=== PATIENT | female | born 1995 | race Caucasian/White ===

== ENCOUNTER 2021-05-08 13:34 | Emergency (ER) | payer BC ==
[~2021-05-08] VITALS: Ht 160 cm; Wt 65.7 kg
[2021-05-08 13:53] LABS: BILIRUBIN,URINE NEGATIVE (NEGATIVE); CLARITY,URINE CLEAR; COLOR,URINE YELLOW; GLUCOSE, URINE (UA) NEGATIVE (NEGATIVE); KETONES,URINE NEGATIVE (NEGATIVE); LEUKOCYTE ESTERASE ,URINE NEGATIVE (NEGATIVE); NITRITE,URINE NEGATIVE (NEGATIVE); PROTEIN,URINE NEGATIVE (NEGATIVE)
--- NOTE | 2021-05-08 13:59 | ED Abdominal Pain ---
General Chief Complaint: Abdominal/GI Problems Stated Complaint: RLQ PAIN, N/V,DIARRHEA Source of Information: Patient Exam Limitations: No Limitations History of Present Illness Date Seen by Provider: May 08, 2021 Time Seen by Provider: 13:57 Initial Comments To ER with right lower quadrant abdominal pain nausea vomiting and diarrhea. No fevers. No dysuria. This began as a suprapubic discomfort waxing and waning about 1.5 weeks ago. She attributed it to being about to start her menstrual cycle as she only had 3 days of active pills left before switching to placebo pills on her control regimen. She had minimal bleeding but she does have some waxing and waning pain that has now moved to the right lower quadrant. She has intermittent pain currently she rates this at 6 out of 10. She has intermittent nausea that is not present currently. She is sexually active but denies any abnormal vaginal discharge. 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 Timing/Duration: 1-2 Days Severity/Quality: Moderate Location: RLQ Radiation: No Radiation Activities at Onset: None Associated Symptoms: Nausea/Vomiting Allergies and Home Medications Allergies Coded Allergies: No Known Drug Allergies (Unverified , 05/08/21) Patient Home Medication List Home Medication List Reviewed: Yes Review of Systems Review of Systems Constitutional: see HPI EENTM: No Symptoms Reported Respiratory: No Symptoms Reported Cardiovascular: No Symptoms Reported Gastrointestinal: See HPI, Abdominal Pain, Diarrhea, Nausea Genitourinary: No Symptoms Reported Musculoskeletal: no symptoms reported Skin: no symptoms reported Psychiatric/Neurological: No Symptoms Reported Endocrine: No Symptoms Reported Hematologic/Lymphatic: No Symptoms Reported Past Lbpibsa-Pjzhrw-Knwomx Hx Patient Social History Tobacco Use?: No Use of E-Cig and/or Vaping dev: No Substance use?: No Alcohol Use?: No Immunizations Up To Date First/Initial COVID19 Vaccinat: 2020 Second COVID19 Vaccination Kyle: 2020 Physical Exam Vital Signs Vital Signs - First Documented 05/08/21 13:45 Pulse 92 Resp 16 B/P (MAP) 147/100 (116) Pulse Ox 98 O2 Delivery Room Air Capillary Refill : Height/Weight/BMI Height: '" Weight: lbs. oz. kg; BMI Method: General Appearance: WD/WN, no apparent distress HEENT: PERRL/EOMI, normal ENT inspection Neck: non-tender, full range of motion Respiratory: no respiratory distress, no accessory muscle use Cardiovascular: regular rate, rhythm, no murmur Gastrointestinal: normal bowel sounds, soft, tenderness (minimal rlq) Extremities: normal range of motion, non-tender Neurologic/Psychiatric: alert, normal mood/affect, oriented x 3 Skin: normal color, warm/dry Progress/Results/Core Measures Results/Orders Lab Results Laboratory Tests Test 05/08/21 13:45 05/08/21 13:51 Range/Units Urine Color YELLOW Urine Clarity CLEAR Urine pH 6.0 5-9 Urine Specific [place] 1.020 1.016-1.022 Urine Protein NEGATIVE NEGATIVE Urine Glucose (UA) NEGATIVE NEGATIVE Urine Ketones NEGATIVE NEGATIVE Urine Nitrite NEGATIVE NEGATIVE Urine Bilirubin NEGATIVE NEGATIVE Urine Urobilinogen 0.2 < = 1.0 MG/DL Urine Leukocyte Esterase NEGATIVE NEGATIVE Urine RBC (Auto) NEGATIVE NEGATIVE Urine RBC NONE /HPF Urine WBC RARE /HPF Urine Squamous Epithelial Cells 2-5 /HPF Urine Crystals NONE /LPF Urine Bacteria TRACE /HPF Urine Casts NONE /LPF Urine Mucus NEGATIVE /LPF Urine Culture Indicated NO White Blood Count 6.8 4.3-11.0 10^3/uL Red Blood Count 4.54 3.80-5.11 10^6/uL Hemoglobin 13.4 11.5-16.0 g/dL Hematocrit 40 35-52 % Mean Corpuscular Volume 89 80-99 fL Mean Corpuscular Hemoglobin 30 25-34 pg Mean Corpuscular Hemoglobin Concent 33 32-36 g/dL Red Cell Distribution Width 12.7 10.0-14.5 % Platelet Count 325 130-400 10^3/uL Mean Platelet Volume 8.7 L 9.0-12.2 fL Immature Granulocyte % (Auto) 0 % Neutrophils (%) (Auto) 53 42-75 % Lymphocytes (%) (Auto) 42 12-44 % Monocytes (%) (Auto) 4 0-12 % Eosinophils (%) (Auto) 1 0-10 % Basophils (%) (Auto) 0 0-10 % Neutrophils # (Auto) 3.6 1.8-7.8 X 10^3 Lymphocytes # (Auto) 2.8 1.0-4.0 X 10^3 Monocytes # (Auto) 0.3 0.0-1.0 X 10^3 Eosinophils # (Auto) 0.1 0.0-0.3 10^3/uL Basophils # (Auto) 0.0 0.0-0.1 10^3/uL Immature Granulocyte # (Auto) 0.0 0.0-0.1 10^3/uL Erythrocyte Sedimentation Rate 13 0-20 MM/HR Sodium Level 138 135-145 MMOL/L Potassium Level 3.6 3.6-5.0 MMOL/L Chloride Level 104 98-107 MMOL/L Carbon Dioxide Level 22 21-32 MMOL/L Anion Gap 12 5-14 MMOL/L Blood Urea Nitrogen 13 7-18 MG/DL Creatinine 0.82 0.60-1.30 MG/DL Estimat Glomerular Filtration Rate 84 BUN/Creatinine Ratio 16 Glucose Level 101 70-105 MG/DL Calcium Level 9.9 8.5-10.1 MG/DL Corrected Calcium 9.6 8.5-10.1 MG/DL Total Bilirubin 0.2 0.1-1.0 MG/DL Aspartate Amino Transf (AST/SGOT) 20 5-34 U/L Alanine Aminotransferase (ALT/SGPT) 19 0-55 U/L Alkaline Phosphatase 54 40-136 U/L C-Reactive Protein High Sensitivity 0.25 0.00-0.50 MG/DL Total Protein 7.8 6.4-8.2 GM/DL Albumin 4.4 3.2-4.5 GM/DL Serum Test, Qualitative NEGATIVE NEGATIVE My Orders Orders - CRISTELA BRANDT APRN Cbc With Automated Diff (05/08/21 13:42) Comprehensive Metabolic Panel (05/08/21 13:42) Hs C Reactive Protein (05/08/21 13:42) Ed Iv/Invasive Line Start (05/08/21 13:42) Ua Culture If Indicated (05/08/21 13:42) Hcg,Qualitative Serum (05/08/21 13:42) Erythrocyte Sedimentation Rate (05/08/21 13:56) Ketorolac Injection (Toradol Injection) (05/08/21 14:00) Us Pelvic (Non Ob)40029 (05/08/21 13:56) Medications Given in ED Current Medications Medications Dose Ordered Sig/[place] Route Start Time Stop Time Status Last Admin Dose Admin Ketorolac Tromethamine 15 mg ONCE ONCE IVP 05/08/21 14:00 05/08/21 14:01 DC 05/08/21 14:02 15 MG Vital Signs/I&O 05/08/21 13:45 Pulse 92 Resp 16 B/P (MAP) 147/100 (116) Pulse Ox 98 O2 Delivery Room Air Departure Communication (Admissions) 0405-states that she is very anxious. She is relieved to know that her ovarian cyst is small. She would like a prescription for ibuprofen higher dose and states that she has taken Klonopin before for anxiety but I think she needs something for short-term anxiety control. She is agreeable to a few doses of Ativan as needed. She already takes Zoloft 200 mg daily. Impression Primary Impression: Ovarian cyst Disposition: HOME, SELF-CARE Condition: Stable Departure-Patient Inst. Decision time for Depature: 14:52 Referrals: NO,LOCAL PHYSICIAN (PCP/Family) Primary Care Physician Patient Instructions: Ovarian Cyst ED Add. Discharge Instructions: All discharge instructions reviewed with patient and/or family. Voiced understanding. Scripts Lorazepam (Ativan) 0.5 Mg Tablet 0.5 MG PO BID PRN for ANXIETY for 7 Days, #10 TAB Prov: CRISTELA BRANDT APRN 05/08/21 Ibuprofen (Ibuprofen) 800 Mg Tablet 800 MG PO Q8H PRN for PAIN, #30 TAB 0 Refills Prov: CRISTELA BRANDT APRN 05/08/21 CRISTELA BRANDT APRN May 08, 2021 13:59
[2021-05-08] MEDS ORDERED: KETOROLAC 30 MG/ML VIAL IVP ONE (14:00)
[2021-05-08 14:02] LABS: BACTERIA,URINE TRACE /HPF; WBC,URINE RARE /HPF
[2021-05-08 14:02] LABS: BASOPHILS % (AUTO) 0 % (0-10); EOSINOPHILS # (AUTO) 0.1 10^3/uL (0.0-0.3); EOSINOPHILS % (AUTO) 1 % (0-10); HEMATOCRIT 40 % (35-52); HEMOGLOBIN 13.4 g/dL (11.5-16.0); LYMPHOCYTES # (AUTO) 2.8 X 10^3 (1.0-4.0); LYMPHOCYTES % (AUTO) 42 % (12-44); MEAN CORPUSCULAR HEMOGLOBIN 30 pg (25-34); MEAN CORPUSCULAR HGB CONC 33 g/dL (32-36); MEAN CORPUSCULAR VOLUME 89 fL (80-99); MEAN PLATELET VOLUME 8.7 fL (9.0-12.2); MONOCYTES # (AUTO) 0.3 X 10^3 (0.0-1.0); MONOCYTES % (AUTO) 4 % (0-12); NEUTROPHILS # (AUTO) 3.6 X 10^3 (1.8-7.8); NEUTROPHILS % (AUTO) 53 % (42-75); PLATELET COUNT 325 10^3/uL (130-400); WHITE BLOOD COUNT 6.8 10^3/uL (4.3-11.0)
[2021-05-08 14:15] LABS: ALBUMIN 4.4 GM/DL (3.2-4.5); POTASSIUM 3.6 MMOL/L (3.6-5.0)
[2021-05-08 14:17] LABS: CALCIUM 9.9 MG/DL (8.5-10.1)
[2021-05-08 14:18] LABS: TOTAL PROTEIN 7.8 GM/DL (6.4-8.2)
[2021-05-08 14:20] LABS: BILIRUBIN,TOTAL 0.2 MG/DL (0.1-1.0)
[2021-05-08 14:22] LABS: CREATININE SERUM 0.82 MG/DL (0.60-1.30)
[2021-05-08] MEDS ORDERED: IBUP-1780 PO (15:21)
[2021-05-08] MEDS ORDERED: LORA-404 PO (15:21)
[2021-05-08 15:29] VITALS: BP 127/86
--- NOTE | 2021-05-08 16:23 | Diagnostic Imaging Report ---
PROCEDURE: Pelvic complete, transabdominal sonogram. Limited pelvic Doppler. TECHNIQUE: Multiple real-time grayscale images were obtained of the pelvis in various projections, transabdominally. Limited pelvic duplex images were obtained. HISTORY: Suprapubic and right lower quadrant. COMPARISON: None available. FINDINGS: The uterus is anteverted and is normal in size. It measures 7.1 x 3.2 x 5.4 cm. The endometrial stripe measures 3 mm in width. Both ovaries are normal. The right ovary measures 2.8 x 2.5 x 3.1 cm and the left ovary measures 2.6 x 1.3 cm. There is a physiologic cyst in the right ovary. Duplex images reveal normal arterial inflow to both ovaries. There is no free pelvic fluid. IMPRESSION: Normal uterus and ovaries. Dictated by: Dictated on workstation # [id number]
== END 2021-05-08 15:29 | disposition home or self-care (01) ==
LOC: ER 13:37
DX: N83.201 Unspecified ovarian cyst, right side (principal)
CPT/HCPCS: 36415; 76856; 80053; 81000; 84703; 85025; 85652; 86141

== ENCOUNTER → 2021-11-10 | Outpatient (CLI) | payer BC ==
[~2021-11-10] MED LIST: IBUP-1780 PO; LORA-404 PO
--- NOTE | 2021-11-10 13:14 | Diagnostic Imaging Report ---
PROCEDURE: US Renal Bilateral. TECHNIQUE: Multiple real-time grayscale images were obtained over the kidneys in various projections bilaterally. INDICATION: Left flank pain. FINDINGS: Right kidney measures 10.3 x 4.7 x 4.7 cm, and the left kidney measures 10.6 x 5.0 x 4.9 cm. Cortical thickness and echogenicity are normal bilaterally. The renal collecting systems are slightly prominent bilaterally raising question of mild hydronephrosis. No calculi are seen. Bilateral ureteral jets were visualized. No bladder mass or wall thickening is identified. IMPRESSION: There appears to be some mild hydronephrosis bilaterally. No other significant abnormality is detected. Dictated by: Dictated on workstation # [id number]
== END ==
LOC: RAD 12:30
DX: N13.30 Unspecified hydronephrosis (principal)
CPT/HCPCS: 76770